=== PATIENT | male | born 1970 | race Caucasian/White ===

== ENCOUNTER 2021-01-03 22:02 | Emergency (ER) | payer SELFPAY ==
[2021-01-03 22:17] VITALS: BP 164/86; PULSE 81
[2021-01-03] MEDS ORDERED: Diphtheria,Pertussis(Acell),Tetanus Vaccine 0.5 ML Syringe IM ONE (22:44)
[2021-01-03] MEDS ORDERED: Ketorolac 60 MG/2 ML SDV IM ONE (22:44)
[2021-01-03] MEDS ORDERED: cefTRIAXone 1 GM, Lidocaine 1% 2.1 ML IM SCH ×2 (22:45)
[2021-01-03] MEDS ORDERED: HYDROmorphone 1 MG/ML Syringe IM ONE (22:48)
--- NOTE | 2021-01-03 22:50 | EDM.PDOC ---
ED HPI GENERAL MEDICAL PROBLEM - General Chief Complaint: Laceration Stated Complaint: hand lac Time Seen by Provider: 01/03/21 22:10 Source of Information: Reports: Patient, RN Notes Reviewed History Limitations: Reports: No Limitations - History of Present Illness INITIAL COMMENTS - FREE TEXT/NARRATIVE: Patient is a 50-year-old male presenting to the emergency department with complaints of pain and swelling to the proximal aspect of his right third finger. He states 3 days ago, he was fixing a light and the glass shattered. He has a very small laceration on the finger and states that it has been becoming increasingly swollen and painful. Around 11:00 today, he took Aleve and Tylenol with little relief. He is taking nothing for pain since that time. His last tetanus vaccination was greater than 10 years ago. He has had no fever, chills, nausea, or vomiting. Right Finger-Middle Pain Score (Numeric/FACES): 10 - Related Data Allergies Allergy/AdvReac Type Severity Reaction Status Date / Time No Known Allergies Allergy Verified 01/03/21 22:17 Home Meds: Home Meds Acetaminophen/HYDROcodone [Eden 325-5 MG] 1 - 2 tab PO Q4H PRN #12 tablet 01/03/21 [Rx] Losartan [Cozaar] 1 tab PO DAILY 01/03/21 [History] cephALEXin [Keflex] 500 mg PO Q6H 7 Days #28 cap 01/03/21 [Rx] Past Medical History Cardiovascular History: Reports: Hypertension Social & Family History - Tobacco Use Tobacco Use Status *Q: Never Tobacco User Second Hand Smoke Exposure: No - Caffeine Use Caffeine Use: Reports: Coffee - Recreational Drug Use Recreational Drug Use: No ED ROS GENERAL - Review of Systems Review Of Systems: See Below Constitutional: Reports: No Symptoms, Chills. Denies: Fever HEENT: Reports: No Symptoms Respiratory: Reports: No Symptoms Cardiovascular: Reports: No Symptoms GI/Abdominal: Denies: Abdominal Pain, Nausea, Vomiting : Reports: No Symptoms Musculoskeletal: Reports: Hand Pain (right) Skin: Reports: No Symptoms Neurological: Reports: No Symptoms Psychiatric: Reports: No Symptoms Hematologic/Lymphatic: Reports: No Symptoms Immunologic: Reports: No Symptoms ED EXAM, SKIN/RASH Exam: See Below Exam Limited By: No Limitations General Appearance: Alert, Anxious, Mild Distress Respiratory/Chest: No Respiratory Distress, Lungs Clear, Normal Breath Sounds, No Accessory Muscle Use, Chest Non-Tender Cardiovascular: Normal Peripheral Pulses, Regular Rate, Rhythm, No Edema, No Gallop, No JVD, No Murmur, No Rub Extremities: Other (0.25 cm superficial laceration with underlying edema to the proximal aspect of the right middle finger. Hand is tender to palpation. No discoloration.) Neurological: Alert, Oriented, CN II-XII Intact, Normal Cognition, Normal Gait, Normal Reflexes, No Motor/Sensory Deficits Psychiatric: Normal Affect, Normal Mood Course - Vital Signs Last Recorded V/S: Last Vital Signs Temp 97.2 F 01/03/21 22:13 Pulse 81 01/03/21 22:13 Resp 24 H 01/03/21 22:13 BP 164/86 H 01/03/21 22:13 Pulse Ox 95 01/03/21 22:13 - Orders/Labs/Meds Orders: Active Orders 24 hr Category Date Time Status Vaccines to be Administered [RC] PER UNIT ROUTINE Care 01/03/21 22:44 Ordered Hand Comp Min 3V Rt [CR] Stat Exams 01/03/21 22:18 Ordered Acetaminophen/HYDROcodone [Eden 325-5 MG] Med 01/03/21 22:51 Once 2 tab PO ONETIME ONE cefTRIAXone [Rocephin] 1 gm Med 01/03/21 22:45 Active Lidocaine 1% [Xylocaine 1%] 2.1 ml IM Q24H Medication Orders Ceftriaxone Sodium 1 gm/ (Lidocaine HCl 2.1 ml) 0 gm IM Q24H MANAN Meds: Medications Generic Name Dose Route Start Last Admin Trade Name Freq PRN Reason Stop Dose Admin Ceftriaxone Sodium 1 gm/ 0 gm 01/03/21 22:45 Lidocaine HCl 2.1 ml IM Q24H MANAN Discontinued Medications Generic Name Dose Route Start Last Admin Trade Name Freq PRN Reason Stop Dose Admin Diphtheria/Tetanus/Acell Pertussis 0.5 ml 01/03/21 22:44 Adacel IM 01/03/21 22:45 .ONCE ONE Hydromorphone HCl 1 mg 01/03/21 22:48 Dilaudid IM 01/03/21 22:49 ONETIME ONE Ketorolac Tromethamine 60 mg 01/03/21 22:44 Toradol IM 01/03/21 22:45 ONETIME ONE - Re-Assessments/Exams Free Text/Narrative Re-Assessment/Exam: Patient is a 50-year-old male presenting to the emergency department with complaints of pain and swelling to the proximal aspect of his right third finger. He states that he was changing a light bulb 3 days ago and the light bulb broke causing a laceration. Today, he is began experiencing pain and swelling to the hand. He took Tylenol and Aleve around 11:00 today has taken no further medications. Describes it as a painful pressure in the hand which shoots to his wrist. On exam, there is a very small superficial laceration to the ventral aspect of the right middle finger the proximal aspect is swollen. There is no swelling or discoloration extending into the hand. Case discussed with Dr. White. He recommended an x-ray of the hand to look for possible foreign body and treatment with antibiotics. Since injury occurred only 3 days ago and he has no signs of systemic infection, blood work is not indicated. I have ordered 1 g of IM Rocephin, Tdap vaccination, Toradol 60 mg IM, and 2 tabs of Eden. 01/03/21 22:58 X-ray of the right hand reviewed by both myself and Dr. Crabtree. There is no obvious foreign body. I will write prescription for Keflex as well as Eden for pain. Recommend follow-up with his primary care provider on Saturday of this week for reevaluation. Once the pain and swelling has subsided, they may look further for foreign body that may not be radiopaque. Return to ER if symptoms are worsening. Departure - Departure Time of Disposition: 22:57 Disposition: Home, Self-Care 01 Condition: Good Clinical Impression: Wound infection - Discharge Information *PRESCRIPTION DRUG MONITORING PROGRAM REVIEWED*: Yes *COPY OF PRESCRIPTION DRUG MONITORING REPORT IN PATIENT LISA: No Prescriptions: cephALEXin [Keflex] 500 mg PO Q6H 7 Days #28 cap Acetaminophen/HYDROcodone [Eden 325-5 MG] 1 - 2 tab PO Q4H PRN #12 tablet PRN Reason: Pain Instructions: Wound Infection, [id number] Referrals: Anastasiya Mena PA-C [Ordering Only Provider] - Forms: ED Department Discharge Additional Instructions: You were seen in the emergency department today for pain and swelling to your middle finger on your right hand after cutting it 3 days ago on glass. X-rays were completed and show no obvious foreign body. While in the ER, he received an injection of Toradol, tetanus vaccination, an injection of Rocephin which is an antibiotic, and 2 tablets of Eden for pain. A prescription for Keflex (antibiotic) and Eden for pain has been sent to [facility]. Recommend ibuprofen 600 mg every 6 hours routinely for the next few days. For pain not relieved by ibuprofen, you may use 1-2 Eden as prescribed. Do not drive or work for 12 hours after taking this medication as it can be sedating. Recommend elevating your hand while at rest. You may also apply ice intermittently. Follow-up with your primary care provider, Anastasiya Mena, on Saturday of this week. Return to ER for worsening symptoms. Sepsis Event Note (ED) - Evaluation Sepsis Screening Result: No Definite Risk - Focused Exam Vital Signs: Vital Signs Temp Pulse Resp BP Pulse Ox 01/03/21 22:13 97.2 F 81 24 H 164/86 H 95 - My Orders Last 24 Hours: My Active Orders 01/03/21 22:18 Hand Comp Min 3V Rt [CR] Stat 01/03/21 22:44 Vaccines to be Administered [RC] PER UNIT ROUTINE 01/03/21 22:45 cefTRIAXone [Rocephin] 1 gm Lidocaine 1% [Xylocaine 1%] 2.1 ml IM Q24H 01/03/21 22:51 Acetaminophen/HYDROcodone [Eden 325-5 MG] 2 tab PO ONETIME ONE - Assessment/Plan Last 24 Hours: My Active Orders 01/03/21 22:18 Hand Comp Min 3V Rt [CR] Stat 01/03/21 22:44 Vaccines to be Administered [RC] PER UNIT ROUTINE 01/03/21 22:45 cefTRIAXone [Rocephin] 1 gm Lidocaine 1% [Xylocaine 1%] 2.1 ml IM Q24H 01/03/21 22:51 Acetaminophen/HYDROcodone [Eden 325-5 MG] 2 tab PO ONETIME ONE
[2021-01-03] MEDS ORDERED: Acetaminophen/HYDROcodone 325-5 MG Tab PO ONE (22:51)
[2021-01-03] MEDS ORDERED: Diphtheria,Pertussis(Acell),Tetanus Vaccine 0.5 ML Syringe ONE (23:04)
--- NOTE | 2021-01-04 08:56 | CR ---
Right hand: 4 views of the right hand were obtained. Comparison: No previous hand study is available. Findings: No radiopaque foreign object is appreciated within the soft tissues. Joint spaces are fairly well maintained. Slight deformity compatible with old fracture is noted within the base of the fifth metacarpal. Small calcification is seen off the base of the proximal phalanx of the fifth finger believed to be old. No acute fracture, dislocation or other bony abnormality is appreciated. Impression: 1. Small calcification within the fifth digit believed to be old. 2. No radiopaque foreign object is seen. 3. Nothing acute is seen within the osseous structures. Diagnostic code #2
== END 2021-01-03 23:20 | disposition home or self-care (01) ==
LOC: JD.ED 22:02
DX: T81.49XA Infection following a procedure, other surgical site, initial encounter (principal); I10 Essential (primary) hypertension; Z23 Encounter for immunization; Z79.899 Other long term (current) drug therapy
CPT/HCPCS: 73130; 90471; 90715; 96372; 99283; A9270; J0696; J1885; J2001

== ENCOUNTER 2022-11-30 11:09 | Emergency (ER) | payer SELFPAY ==
[2022-11-30 11:19] VITALS: BP 176/74; PULSE 74
[2022-11-30] MEDS ORDERED: Gabapentin 300 MG Cap PO ONE (11:35)
== END 2022-11-30 12:33 | disposition home or self-care (01) ==
LOC: JD.ED 11:09
DX: G62.9 Polyneuropathy, unspecified (principal); I10 Essential (primary) hypertension; Z79.899 Other long term (current) drug therapy
CPT/HCPCS: 99283; A9270

== ENCOUNTER 2024-07-04 18:27 | Emergency (ER) | payer SELFPAY ==
[2024-07-04 20:42] VITALS: BP 135/85; PULSE 85
== END 2024-07-04 20:44 | disposition home or self-care (01) ==
LOC: JD.ED 18:27
DX: S83.92XA Sprain of unspecified site of left knee, initial encounter (principal); M17.12 Unilateral primary osteoarthritis, left knee; I10 Essential (primary) hypertension; Z79.899 Other long term (current) drug therapy; W19.XXXA Unspecified fall, initial encounter
CPT/HCPCS: 73562-26-LT; 73562-LT; 99283

== ENCOUNTER 2025-01-11 18:51 | Emergency (ER) | payer MEDICAID ==
[2025-01-11 20:07] LABS: BASOPHILS ABSOLUTE AUTO 0.1 K/mm3 (0.0-0.2); BASOPHILS PERCENT AUTO 0.4 % (0.0-1.0); EOSINOPHILS ABSOLUTE AUTO 0.2 K/mm3 (0.0-0.4); EOSINOPHILS PERCENT AUTO 1.6 % (0.0-6.0); HEMATOCRIT 45.9 % (42.0-52.0); HEMOGLOBIN 14.5 gm/dl (14.0-18.0); IMMATURE GRAN ABSOLUTE AUTO 0.11 K/mm3 (0.00-0.05); IMMATURE GRAN PERCENT AUTO 0.8 % (0.0-0.4); LYMPHOCYTES ABSOLUTE AUTO 2.3 K/mm3 (1.0-4.8); LYMPHOCYTES PERCENT AUTO 17.5 % (24.0-44.0); MEAN CORPUSCULAR HEMOGLOBIN 26.2 pg (28.0-32.0); MEAN CORPUSCULAR HGB CONC 31.6 g/dl (32.0-36.0); MEAN CORPUSCULAR VOLUME 82.9 fl (83.0-99.0); MEAN PLATELET VOLUME 9.4 fl (9.4-12.4); MONOCYTES ABSOLUTE AUTO 1.1 K/mm3 (0.0-0.8); MONOCYTES PERCENT AUTO 8.1 % (0.0-8.0); NEUTROPHILS ABSOLUTE AUTO 9.6 K/mm3 (1.8-7.7); NEUTROPHILS PERCENT AUTO 71.6 % (41.0-71.0); PLATELET COUNT,PLT 486 K/mm3 (150-400); RED BLOOD CELL COUNT 5.54 M/mm3 (4.52-5.90); WHITE BLOOD CELL COUNT,WBC 13.36 K/mm3 (3.9-11.3)
[2025-01-11 20:26] LABS: INR 1.03; PROTHROMBIN TIME 10.9 SECONDS (9.7-12.0)
[2025-01-11] MEDS: Piperacillin/Tazobactam 4.5 GM in Sodium Chloride 0.9% 100 ML IV ONE (20:29)
[2025-01-11] MEDS: VANCOmycin 1 GM in Sodium Chloride 0.9% 250 ML IV ONE (20:29)
[2025-01-11] MEDS: VANCOmycin 2 GM/400 ML 2 GM in Premix Bag 1 BAG IV ONE (20:30)
[2025-01-11] MEDS: Sodium Chloride 0.9% 10 ML Syringe FLUSH PRN (20:30)
[2025-01-11 20:35] LABS: HEMOGLOBIN A1C 6.1 %
[2025-01-11 20:46] LABS: A/G RATIO 0.7 (1-2); ALBUMIN 3.4 g/dl (3.4-5.0); BILIRUBIN TOTAL 0.2 mg/dL (0.2-1.0); BUN/CREATININE RATIO 13.8 (14-18); C-REACTIVE PROTEIN 3.48 mg/dL (<0.30); CALCIUM 9.4 mg/dL (8.5-10.1); CREATININE 1.3 mg/dL (0.7-1.3); EST CRCL DRUG DOSING (CG) 76.97 mL/min; PROTEIN TOTAL,TP 8.2 g/dl (6.4-8.2)
[2025-01-11] MEDS: Iopamidol 612 MG/ML 100 ML Bottle IVPUSH ONE (20:56)
[2025-01-11 20:57] LABS: LACTIC ACID 2.1 mmol/L (0.4-2.0)
[2025-01-11] MEDS: Sodium Chloride 0.9% 1,000 ML IV SCH (21:08)
[2025-01-11] MEDS: Lactated Ringers 1,000 ML IV ONE (22:18)
[2025-01-11] MEDS: metroNIDAZOLE/Normal Saline 500 MG in Premix Bag 1 BAG IV ONE (22:32)
[2025-01-11 23:19] VITALS: BP 138/65; PULSE 86
== END 2025-01-11 23:00 ==
LOC: JD.ED 18:51
DX: M86.072 Acute hematogenous osteomyelitis, left ankle and foot (principal); E66.01 Morbid (severe) obesity due to excess calories; R73.03 Prediabetes; I10 Essential (primary) hypertension; Z79.899 Other long term (current) drug therapy; Z68.43 Body mass index [BMI] 50.0-59.9, adult
CPT/HCPCS: 36415; 73701; 80053; 83036; 83605; 85025; 85610; 86140; 87040; 96365; 96366; 96367; 96368; 99285; J1836; J2543; J3372; J7030; J7120; Q9967